=== PATIENT | female | born 1970 | race Caucasian/White ===

== ENCOUNTER → 2019-09-23 | Outpatient (CLI) | payer OTHER | LOC: ULTRA 09:17 | DX: R22.32 Localized swelling, mass and lump, left upper limb (principal) ==

== ENCOUNTER → 2020-09-21 | Outpatient (CLI) | payer OTHER | LOC: ULTRA 10:33 | PROVIDERS: ATTEND Family Medicine | DX: R22.32 Localized swelling, mass and lump, left upper limb (principal) ==

== ENCOUNTER → 2020-10-23 | Outpatient (CLI) | payer OTHER | LOC: LAB 12:02 | PROVIDERS: ATTEND Nurse Practitioner | DX: Z20.828 Contact with and (suspected) exposure to other viral communicable diseases (principal) ==